=== PATIENT | male | born 1960 | race Hispanic/Latino ===

== ENCOUNTER 2018-02-08 19:19 | Emergency (ER) | payer OTHER ==
[~2018-02-08] VITALS: Ht 165.1 cm; Wt 94.3 kg
[2018-02-08] MEDS ORDERED: KETOROLAC TROMETHAMINE 30 MG/ML VIAL IV STA (19:37)
[2018-02-08] MEDS ORDERED: SODIUM CHLORIDE 0.9% 1000ML 1,000 ML IV SCH (19:45)
[2018-02-08] MEDS ORDERED: HYDRALAZINE HCL 20 MG/ML VIAL IV STA (20:03)
--- NOTE | 2018-02-08 21:08 | Diagnostic Imaging Report ---
EXAMINATION: CT of the abdomen and pelvis with contrast. TECHNIQUE: Spiral CT images of the abdomen and pelvis were performed from the lung bases to the lesser trochanters after the intravenous administration of 100 cc of Isovue 300 and the oral administration of Redicat. Coronal and sagittal reformatted images were obtained. COMPARISON: None. CLINICAL HISTORY:Left-sided abdominal pain for 2 days DISCUSSION: ABDOMEN/PELVIS: LOWER THORAX:Ill-defined 5 mm groundglass nodule in the lateral left lower lobe (series 2, image 8). HEPATOBILIARY: No focal hepatic lesions. No intra or extrahepatic biliary ductal dilation. GALLBLADDER: No radio-opaque stones or sludge. No wall thickening. SPLEEN: No splenomegaly. PANCREAS: No focal masses or ductal dilatation. ADRENALS: No adrenal nodules. KIDNEYS/URETERS: No hydronephrosis, stones, or solid mass lesions. PELVIC ORGANS/BLADDER: Moderate circumferential bladder wall thickening without focal lesions. Dystrophic calcifications in the prostate. PERITONEUM/RETROPERITONEUM: No free air or fluid. LYMPH NODES: No intra-abdominal, retroperitoneal, pelvic or inguinal lymphadenopathy. Nonspecific subcentimeter lymph nodes in the gastrohepatic ligament (series 2, image 22) and adjacent to the antrum (series 2, image 20). VESSELS: The celiac trunk,superior and inferior mesenteric and bilateral renal arteries are patent The portal, superior mesenteric and splenic veins are patent. GI TRACT: No bowel dilation or evidence of obstruction. No pericolonic inflammatory changes. Appendix is well identified and normal in caliber. Wall thickening of the stomach fundus and body, which is greater than expected for underdistention (for example series 2, image 21 and coronal image 52). Rest of the bowel shows no wall thickening. BONES AND SOFT TISSUE: No aggressive lytic lesions. Level degenerative disc changes in the lower thoracic and lumbosacral spine. Posterior fusion hardware L4-L5 with grade 1 anterolisthesis of L4 on L5. Soft tissues unremarkable. IMPRESSION: 1. Wall thickening of the stomach fundus and body, which is greater than expected for underdistention, with presence of nonspecific subcentimeter lymph nodes in the gastrohepatic ligament and adjacent to the gastric antrum. This may reflect gastritis, in the appropriate clinical setting. Consider direct visualization with endoscopy for further evaluation. 2. Moderate circumferential bladder wall thickening without focal lesions. Correlate for cystitis. 3. Ill-defined 5 mm groundglass nodule in the lateral left lower lobe. If patient is low risk, no further follow-up is indicated per [employer] 2017 guidelines. Signed by: Dr. Dexter Lange M.D. on 02/08/2018 9:04 PM
[2018-02-08] MEDS ORDERED: CLONIDINE HCL 0.1 MG TAB PO ONE (21:30)
[2018-02-08] MEDS ORDERED: PANTOPRAZOLE 40 MG 10ML VIAL IV STA (21:30)
[2018-02-08 22:36] VITALS: BP 170/80
== END 2018-02-08 22:48 | disposition home or self-care (01) ==
LOC: FSED 19:19
DX: R10.9 Unspecified abdominal pain (principal); K29.00 Acute gastritis without bleeding
CPT/HCPCS: 74177; 80053; 81003; 85025; 99284; J0360; J1885; J7030